=== PATIENT | female | born 1965 ===

== ENCOUNTER 2017-02-08 06:26 | Day surgery (SDC) | payer MEDICAID ==
[2017-02-03 11:49] VITALS: BMI 24.3
[2017-02-08] MEDS ORDERED: Lactated Ringer's 1,000 ML IV ONE (07:09)
[2017-02-08] MEDS ORDERED: Lidocaine 1% Inj (20ml) ONE (07:22)
[2017-02-08] MEDS ORDERED: Bupivacaine 0.5% Inj(30mL) ONE (07:23)
--- NOTE | 2017-02-08 07:27 | CP.SDSHP ---
Same Day Surgery H & P - History Proposed Procedure: PIPJ arthroplasty 4th digit and 5th digit exostectomy, left foot Pre-Op Diagnosis: 4th digit hammertoe and 5th digit bone spur, left foot - Previous Medical/Surgical History Pulmonary: Asthma Endocrine/Metabolic: Diabetes Misc: Other Comments: Hyperlipidemia, Rheumatoid Arthritis, stroke Previous Surgical History: Hysterectomy - Allergies Allergies: Allergies No Known Allergies Allergy (Verified 03/27/15 08:13) - Current Medications Current Medications: Januvia 100 mg, Simvistatin 25 mg - Physical Exam Vital Signs: Vital Signs 02/08/17 02/08/17 06:45 06:48 Temperature 98 F Pulse Rate 67 67 Respiratory 20 Rate Blood Pressure 142/70 O2 Sat by Pulse 98 Oximetry Mental Status: Alert & Oriented x3 - {Optional Preform as Required} Integument: WNL - Impression Impression: Pt was seen and examined in SDS. Pt NPO status was confirmed. All Pre-op testing and clearance was in the chart. Pt has exhausted all conservative treatment at this time and is opting for surgical intervention. Pt was explained procedure and post-operative course. All pt's questions were answered to satisfaction. No guarantees were made. Pt understands all risks, benefits and complications of procedure. Pt will follow-up with Dr. Herman - Date & Time Date: 02/08/17 Time: 07:29 Short Stay Discharge - Short Stay Discharge Admitting Diagnosis/Reason for Visit: M20.42,M25.775 Referrals: Hernesto Herman, SISSY [Medical Doctor] - Additional Instructions (Diet, Activity): Patient in good/stable condition for discharge home. Pt to resume medications per medical reconciliation. Resume regular diet. Please keep dressing clean, dry, & intact to surgical site, use plastic bag over bandage for showering, wear post op shoe at all times when ambulating, call office if you see signs of infection (redness, swelling, malodor), please make an appointment to see Dr. Herman in office within 1 week for post-op check. Progress Note/Discharge Note with Instructions: - Patient evaluated bedside in recovery s/p surgical procedure. - After surgical procedure patient in NAD - (+) Void, (+) Appetite - Capillary refill time <3s and NVSI intact. - Patient denies complaints at this time - Post operative instructions and plan of care explained to patient at length. - Pt. acknowledges understanding. - Patient stable for DC per podiatric surgery
--- NOTE | 2017-02-08 07:32 | CP.PCM.PN ---
Subjective - Date & Time of Evaluation Date of Evaluation: 02/08/17 Time of Evaluation: 07:30 - Subjective Subjective: 51 year old female patient with PMHx of HLD, DM, RA, and asthma seen at bedside in [facility] for pre-operative evaluation for 4th HT correction and resection of 5th digit bone spur, left foot by Dr. Herman. Patient is seen resting comfortably, AAOx3 and NAD. Patient states that she experiences pain in her 4th toe and at the 5th toe when walking and has exhausted conservative treatment. Patient now opts for surgical intervention. NPO status confirmed. Patient denies N/V/F/D/SOB /CP. No other pedal complaints at this time. Objective - Vital Signs/Intake and Output Vital Signs (last 24 hours): Temp Pulse Resp BP Pulse Ox 98 F 67 20 142/70 98 02/08/17 06:45 02/08/17 06:48 02/08/17 06:45 02/08/17 06:45 02/08/17 06:45 - Constitutional Appears: Well, Non-toxic, No Acute Distress - Extremities Exam Additional comments: Vasc: DP and PT pulses palpable, 2/4 b/l. CFT <3 seconds to all digits x10. TG cool to cool. No edema noted. Neuro: Gross sensation intact. Derm: No open lesions, rashes, or subcutaneous nodules noted. Skin appears well hydrated Ortho: Patient presents with antalgic gait and limp to left side with external rotation of leg. Early heel off noted to left ankle. No pain on palpation noted to left 4th and 5th digits. Pain to 4th and 5th digits, left foot, with ambulation. Patient has decreased ankle joint ROM, L>R Ankle joint dorsiflexion to left ankle is < 10 degrees with knee flexed and extended without pain or crepitus. Negative anterior drawer test. Muscle strength is 5/5 for all dorsiflexors, plantarfexors, inverters, and everters b/l Pain upon active plantarflexion to 4th digit left foot. STJ ROM is full B/L with 20 degrees inversion and 10 degrees eversion. RCSP is 2 degrees everted with NCSP 0 degrees. ROM of MTJ is normal without pain or crepitus. The forefoot is perpendicular to the rearfoot. First ray ROM is normal. 1st MPJ ROM is normal 65 degrees wihtout pain or crepitus b/l. - Neurological Exam Neurological Exam: Alert, Awake, Oriented x3 - Psychiatric Exam Psychiatric exam: Normal Affect, Normal Mood Assessment and Plan - Assessment and Plan (Free Text) Assessment: 51 year old female patient with left 4th digit hammertoe and 5th digit bone spur Plan: Pt was seen and examined in SDS Pt NPO status was confirmed All Pre-op testing and clearance was in the chart Pt has exhausted all conservative treatment at this time and is opting for surgical intervention Pt was explained procedure and post-operative course All pt's questions were answered to satisfaction No guarantees were made Pt understands all risks, benefits and complications of procedure Pt will follow-up with Dr. Herman
[2017-02-08] MEDS ORDERED: Lidocaine 1% Inj (20ml) IJ ONE ×2 (07:38→08:50)
[2017-02-08] MEDS ORDERED: ceFAZolin 1 GM in Sodium Chloride 0.9% 100 ML IVPB ONE (07:38)
[2017-02-08] MEDS ORDERED: Bupivacaine 0.5% 50 ML IJ ONE (07:38)
[2017-02-08] MEDS ORDERED: Rocuronium 10 mg/ml (5 ml) ONE (07:40)
[2017-02-08] MEDS ORDERED: Midazolam 2 MG/2 ML VIAL ONE (07:40)
[2017-02-08] MEDS ORDERED: Propofol 10 mg/ml Inj (20 ML) ONE (07:40)
[2017-02-08] MEDS ORDERED: Succinylcholine 200 mg/10 ml Inj IV ONE (07:41)
[2017-02-08] MEDS ORDERED: Neostigmine Methylsulfate 3mg/3ml Syringe IV ONE (07:41)
--- NOTE | 2017-02-08 09:13 | PCM.SURG1 ---
Surgeon's Initial Post Op Note - Surgeon's Notes Surgeon: Dr. Hernesto Herman Entertainer Or Variety Artist: Dr. Wheeler PGY2, Dr. Tirado PGY1 Anesthesia Administered By: Dr. Randolph Pre-Operative Diagnosis: Left foot 4th digit hammertoe and 5th digit bone spur Operative Findings: See operative report. Materials: 0.045 K-wire, 4-0 vicryl, 4-0 prolene. Injectibles: 11ccs 1:1 mix 1% lidocaine and 0.5% marcaine Post-Operative Diagnosis: Same as above Operation Performed: Left foot 4th digit hammertoe correction and 5th digit exostectomy Specimen/Specimens Removed: 4th digit bone Estimated Blood Loss: EBL {In ML}: 0 Blood Products Given: N/A Drains Used: No Drains Post-Op Condition: Good Date of Surgery/Procedure: 02/08/17 Time of Surgery/Procedure: 08:15
[2017-02-08] MEDS ORDERED: Oxycodone/Acetaminophen 5/325 mg Tab PO PRN ×2 (09:15)
[2017-02-08] MEDS ORDERED: Lactated Ringer's 1,000 ML IV SCH (09:33)
[2017-02-08] MEDS: HYDROmorphone 0.5 mg/0.5 ml ISec IVP PRN ×2 (09:40→10:00)
[2017-02-08 10:50] VITALS: RESP 18
[2017-02-08] MEDS ORDERED: Oxycodone/Acetaminophen 5/325 mg Tab PO ONE (12:15)
[2017-02-08 12:35] VITALS: BP 134/76; PULSE 68; TEMP 97.6; O2SAT 97
--- NOTE | 2017-02-08 14:48 | RAD ---
PROCEDURE: Left Foot Radiographs. HISTORY: Left foot surgery COMPARISON: None. FINDINGS: BONES: Postoperative findings include K-wire traversing the 4th digit. No evidence of orthopedic hardware failure. JOINTS: Normal. SOFT TISSUES: Normal. OTHER FINDINGS: None. IMPRESSION: Satisfactory postoperative status.
--- NOTE | 2017-02-09 07:26 | OP ---
PROCEDURE DATE: 02/08/2017 PREOPERATIVE DIAGNOSES: 1. Left foot fourth digit hammertoe deformity. 2. Left foot fifth digit exostectomy. POSTOPERATIVE DIAGNOSES: 1. Left foot fourth digit hammertoe deformity. 2. Left foot fifth digit exostectomy. PROCEDURES PERFORMED: 1. Left fourth digit proximal intraphalangeal joint arthroplasty. 2. Left fifth digit condylectomy. SURGEON: Hernesto Herman DPM INSULATION NOZZLEMAN: Raudel Wheeler DPM, PGY-2; Mando Tirado DPM, PGY-1 TYPE OF ANESTHESIA: General LMA. ANESTHESIA ADMINISTERED BY: Armani Randolph MD INDICATIONS: The patient is a 51-year-old female with the above-stated diagnoses. The patient has exhausted all conservative outpatient options and now is in need of surgical intervention. The patient signed the consent after careful explanation of all risks, benefits, complications, and alternatives for the proposed surgical procedure. No guarantees were neither given nor implied. All questions were answered. The patient's n.p.o. status was confirmed prior to bringing the patient to the operating room. PREPARATION: The patient was brought into the operating room and placed on the operating room table in a supine position. A well-padded pneumatic tourniquet was applied to the left lower extremity in the supramalleolar position and set to 250 mmHg to be inflated once the procedure began. Oncethe IV sedation was confirmed to be achieved, the patient received a total of 11 mL of a 1:1 mixture of 0.5% Marcaine plain to 1% lidocaine plain in the local blocked fashion to the left foot. Timeout was performed for proper identification of patient and procedure. Once general anesthesia was confirmed to have been achieved, the patient's left foot was then prepped and draped in the usual sterile manner and the procedure began. PROCEDURE#1: Attention was then directed to the dorsal aspect of the fourth digit on the left lower extremity where a 3 cm longitudinal incision was made overlying the proximal intraphalangeal joint using a #15 blade. This incision was deepened using sharp dissection down through the deep tissue layers with care being taken to retract all vital neurovascular structures and all bleeders were cauterized and ligated as needed. At this time, a transverse tenotomy and capsulotomy was performed at the level of the proximal intraphalangeal joint and the head of the proximal phalanx was then freed of its capsular and ligamentous attachments. Next, utilizing a sagittal saw, the head of the proximal phalanx was resected and passed into operative field and sent for pathology. At this time, corrections of the deformity was assessed and found to be adequate. A 0.045 inch K-wire was then introduced to the surgical field and antegraded from the base of the middle phalanx at the distal tuft of the fourth digit and then retrograded proximally down to the remaining shaft of the proximal phalanx. Condition was appreciated using fluoroscopy and found to be adequate. The incision site was then flushed with copious amounts of sterile saline. Extensor digitorum longus tendon was reapproximated using 4-0 Vicryl. Skin was re-approximated using 4-0 Prolene. PROCEDURE #2: Attention was then directed to the dorsal medial aspect of the left fifth digit. A 1 cm stab incision was made overlying the dorsal medial aspect of the distal interphalangeal joint. Using #15 blade, this incision was extended down through subcutaneous and soft tissue layers using sharp dissection with care being taken to avoid all vital neurovascular structures and all bleeders were cauterized and ligated as needed. Periosteum of the bony prominence of the distal phalanx condyle was then reflected. A hand rasp was introduced and bony prominence was resected using the rasp. No bony spurs or rough edges remained assessed under fluoroscopy and reduction was found to be adequate. Incision site was then flushed with copious amounts of sterile saline. Skin and subcutaneous tissue layers were re-approximated using 4-0 Prolene in a horizontal stitch-type fashion. All incisions were dressed with Betadine-soaked Adaptic, 4x4 gauze, Kerlix, Shane, and Milo. POSTOPERATIVE CONDITION: The patient tolerated the anesthesia and procedure well and was escorted to the recovery room with vital signs stable and neurovascular status intact to the left foot. The patient will follow up with Dr. Herman on an outpatient basis. Raudel Wheeler DPM SACHIN
== END 2017-02-08 13:00 | disposition home or self-care (01) ==
LOC: H.OPSURG 06:26
PROVIDERS: ATTEND Student in an Organized Health Care Education/Training Program
DX: M20.42 Other hammer toe(s) (acquired), left foot (principal); M25.775 Osteophyte, left foot; E11.9 Type 2 diabetes mellitus without complications; E78.5 Hyperlipidemia, unspecified; J45.909 Unspecified asthma, uncomplicated; M06.9 Rheumatoid arthritis, unspecified